=== PATIENT | female | born 1950 | race Caucasian/White ===

== ENCOUNTER → 2017-07-03 | Emergency (ER) | payer OTHER ==
[~2017-07-03] VITALS: Ht 160 cm; Wt 56.2 kg
[~2017-07-03] MED LIST: SYNTHROID75 MCG
== END | disposition home or self-care (01) ==
LOC: ER 10:09
DX: K29.70 Gastritis, unspecified, without bleeding (principal)

== ENCOUNTER 2017-11-24 07:32 | Outpatient (CLI) | payer OTHER | END 2017-11-24 17:35 | disposition home or self-care (01) | LOC: NUCLEAR 07:32 | DX: I20.8 Other forms of angina pectoris (principal) | CPT/HCPCS: 78452; 93017; A9500 ==

== ENCOUNTER 2023-01-27 08:09 | Outpatient (CLI) | payer OTHER | END 2023-01-27 08:15 | disposition home or self-care (01) | LOC: NUCLEAR 08:09 | PROVIDERS: ATTEND Internal Medicine | DX: R94.31 Abnormal electrocardiogram [ECG] [EKG] (principal) ==